=== PATIENT | female | born 1990 | race Two or more races ===

== ENCOUNTER 2024-05-27 09:38 | Emergency (ER) | payer MEDICAID, OTHER ==
[~2024-05-27] VITALS: Ht 157.5 cm; Wt 75.0 kg
[2024-05-27 10:11] VITALS: BP 123/70; PULSE 72; RESP 16; TEMP 98.2; O2SAT 99
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
[2024-05-27] MEDS: ACETAMINOPHEN 325 MG TAB PO ONE (10:41)
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
[2024-05-27] MEDS ORDERED: IBUP-1454 PO (10:57)
[2024-05-27] MEDS ORDERED: METH-1182 PO (10:57)
== END 2024-05-27 11:04 | disposition home or self-care (01) ==
LOC: ER 09:38
DX: S16.1XXA Strain of muscle, fascia and tendon at neck level, initial encounter (principal); S29.011A Strain of muscle and tendon of front wall of thorax, initial encounter; Z79.1 Long term (current) use of non-steroidal anti-inflammatories (NSAID); V89.2XXA Person injured in unspecified motor-vehicle accident, traffic, initial encounter; Y93.89 Activity, other specified; Y92.410 Unspecified street and highway as the place of occurrence of the external cause; Y99.8 Other external cause status
CPT/HCPCS: 71046; 72040